=== PATIENT | male | born 1990 | race Caucasian/White ===

== ENCOUNTER 2018-01-06 20:46 | Emergency (ER) | payer OTHER ==
[~2018-01-06] VITALS: Ht 177.8 cm; Wt 99.8 kg
[2018-01-06] MEDS ORDERED: Norco 5-325 Ta1 EACH PO (21:45)
[2018-01-06] MEDS ORDERED: Bactrim Ds Tab1 EACH PO (21:45)
[2018-01-06] MEDS ORDERED: IBUP600 PO (21:45)
== END 2018-01-06 22:25 | disposition home or self-care (01) ==
LOC: ER 20:46
DX: S61.237A Puncture wound without foreign body of left little finger without damage to nail, initial encounter (principal); W34.09XA Accidental discharge from other specified firearms, initial encounter; Z88.0 Allergy status to penicillin
CPT/HCPCS: 36415; 73130; 96374; 96375; 99284; J2405; J3010